=== PATIENT | male | born 1940 | race Caucasian/White ===

== ENCOUNTER 2019-05-17 20:02 | Inpatient (IN) | payer OTHER, MEDICAID ==
[~2019-05-17] VITALS: Ht 172.7 cm; Wt 88.9 kg
[2019-05-17 20:09] VITALS: BP_SYST 103
[2019-05-17 21:35] LABS: HEMOGLOBIN 14.2 g/dL (14.0-18.0); LYMPHOCYTES # (AUTO) 0.7 K/uL (1.0-5.5); MEAN CORPUSCULAR HEMOGLOBIN 31 pg (27-31); MEAN CORPUSCULAR HGB CONC 34 % (32-36); NEUTROPHILS # (AUTO) 7.9 K/uL (1.8-7.7); NEUTROPHILS % (AUTO) 85.8 % (40.0-70.0); WHITE BLOOD COUNT (AUTO) 9.2 K/uL (4.8-10.8)
[2019-05-17 21:51] LABS: BASOPHILS # (AUTO) 0.1 K/uL (0.0-0.2); BASOPHILS % (AUTO) 0.8 % (0.0-2.0); EOSINOPHILS % (AUTO) 0.1 % (0.0-4.0); LYMPHOCYTES % (AUTO) 7.4 % (20.5-51.5); MEAN CORPUSCULAR VOLUME 93 fL (79.0-98.0); MONOCYTES # (AUTO) 0.5 K/uL (0.0-1.0); MONOCYTES % (AUTO) 5.9 % (1.7-9.3); PLATELET COUNT (AUTO) 198 K/uL (130-430); RED BLOOD CELL COUNT(AUTO) 4.53 MIL/uL (4.2-6.2); RED CELL DISTRIBUTION WIDTH 13.7 % (9.0-15.0)
[2019-05-17 21:55] LABS: ANION GAP 15 (5-15); CALCIUM 8.6 mg/dL (8.4-11.0); CHLORIDE 98 mmol/L (98-107); CREATININE 1.62 mg/dL (0.55-1.30); GLUCOSE 352 mg/dL (70-99); POTASSIUM 3.9 mmol/L (3.5-5.1); SODIUM SERUM 136 mmol/L (136-145); UREA NITROGEN, BLOOD 46 mg/dL (8-21)
[2019-05-17 21:59] LABS: ALANINE AMINOTRANSFERASE 22 U/L (12-78); ALBUMIN 3.4 g/dL (3.4-4.8); ASPARTATE AMINOTRANSFERASE 14 U/L (10-37); TOTAL BILIRUBIN 0.8 mg/dL (0.0-1.0)
[2019-05-17] MEDS ORDERED: NACL 0.9% 1,000 ML IV ONE (22:39)
[2019-05-17] MEDS ORDERED: ONDANSETRON HCL 4 MG/2 ML VIAL IVP ONE (22:45)
[2019-05-17] MEDS ORDERED: PANTOPRAZOLE SODIUM 40 MG/VIAL (PROTONIX) IVP ONE (22:45)
[2019-05-18] VITALS (7 sets, daily range): BP systolic 107–146
[2019-05-18 00:13] LABS: BILIRUBIN,URINE 1+ (NEGATIVE); BLOOD, URINE NEGATIVE (NEGATIVE); CLARITY/URINE CLEAR (CLEAR); COLOR,URINE YELLOW (YELLOW); GLUCOSE,URINE 1+ (NEGATIVE); KETONES,URINE TRACE (NEGATIVE); LEUKOCYTE ESTERASE ,URINE NEGATIVE (NEGATIVE); NITRITE, URINE NEGATIVE (NEGATIVE); PROTEIN URINE NEGATIVE (NEGATIVE); UROBILINOGEN,URINE 0.2 (0.2-1.0)
[2019-05-18] MEDS ORDERED: INSULIN REGULAR, HUMAN 100 UNITS/ML, 10 ML VIAL SUBCUT ONE (01:30)
[2019-05-18] MEDS: NACL 0.9% 1,000 ML IV SCH ×2 (01:34→13:44)
[2019-05-18] MEDS ORDERED: INSULIN REGULAR, HUMAN 10 UNITS/0.1 ML INJ ONE (01:45)
[2019-05-18] MEDS ORDERED: ONDANSETRON HCL 4 MG/2 ML VIAL IVP PRN (07:30)
[2019-05-18] MEDS ORDERED: MORPHINE 4 MG/ML INJ. SYRINGE IVP PRN (07:30)
[2019-05-18] MEDS ORDERED: MORPHINE 2 MG/ML INJ. SYRINGE IVP PRN (07:30)
[2019-05-18 09:03] LABS: BASOPHILS % (AUTO) 0.5 % (0.0-2.0); EOSINOPHILS % (AUTO) 0.1 % (0.0-4.0); HEMOGLOBIN 12.6 g/dL (14.0-18.0); LYMPHOCYTES % (AUTO) 15.4 % (20.5-51.5); MEAN CORPUSCULAR HEMOGLOBIN 32 pg (27-31); MEAN CORPUSCULAR HGB CONC 34 % (32-36); MEAN CORPUSCULAR VOLUME 93 fL (79.0-98.0); MONOCYTES # (AUTO) 0.9 K/uL (0.0-1.0); NEUTROPHILS # (AUTO) 4.7 K/uL (1.8-7.7); PLATELET COUNT (AUTO) 173 K/uL (130-430); RED BLOOD CELL COUNT(AUTO) 3.99 MIL/uL (4.2-6.2); RED CELL DISTRIBUTION WIDTH 13.6 % (9.0-15.0); WHITE BLOOD COUNT (AUTO) 6.6 K/uL (4.8-10.8)
[2019-05-18 09:07] LABS: ALANINE AMINOTRANSFERASE 19 U/L (12-78); ALBUMIN 3.2 g/dL (3.4-4.8); ANION GAP 9 (5-15); ASPARTATE AMINOTRANSFERASE 16 U/L (10-37); CALCIUM 8.2 mg/dL (8.4-11.0); CHLORIDE 102 mmol/L (98-107); CREATININE 1.23 mg/dL (0.55-1.30); GLUCOSE 197 mg/dL (70-99); POTASSIUM 3.1 mmol/L (3.5-5.1); SODIUM SERUM 139 mmol/L (136-145); TOTAL BILIRUBIN 0.9 mg/dL (0.0-1.0); UREA NITROGEN, BLOOD 50 mg/dL (8-21)
[2019-05-18] MEDS ORDERED: METF1000 PO (13:05)
[2019-05-18] MEDS ORDERED: ASPI-1077 PO (13:05)
[2019-05-18] MEDS ORDERED: TAMS-11 PO (13:05)
[2019-05-18] MEDS ORDERED: VITD2000 PO (13:05)
[2019-05-18] MEDS ORDERED: PIOG15TA8 PO (13:05)
[2019-05-18] MEDS ORDERED: DOXA2TAB PO (13:05)
[2019-05-18] MEDS ORDERED: LIP20 PO (13:05)
[2019-05-18] MEDS ORDERED: DONE10TA44 PO (13:05)
[2019-05-18] MEDS ORDERED: MEMA28CA PO (13:05)
[2019-05-18] MEDS ORDERED: GLIM1TAB2 PO (13:05)
[2019-05-18] MEDS ORDERED: LISI1TAB29 PO (13:05)
[2019-05-18] MEDS ORDERED: KCL 40 mEq in 100 mL (PREMIX) 100 ML IV SCH (21:15)
[2019-05-19] MEDS: INSULIN REGULAR, HUMAN 100 UNITS/ML, 10 ML VIAL (humuLIN R) SUBCUT PRN (00:30)
[2019-05-19 04:04] VITALS: BP_SYST 121
[2019-05-19] MEDS: NACL 0.9% 1,000 ML IV SCH ×2 (04:05→17:15)
[2019-05-19 07:58] LABS: BASOPHILS % (AUTO) 0.3 % (0.0-2.0); EOSINOPHILS # (AUTO) 0.1 K/uL (0.0-0.4); HEMATOCRIT 33.2 % (36-54); HEMOGLOBIN 11.5 g/dL (14.0-18.0); LYMPHOCYTES # (AUTO) 1.5 K/uL (1.0-5.5); LYMPHOCYTES % (AUTO) 20.1 % (20.5-51.5); MEAN CORPUSCULAR HEMOGLOBIN 32 pg (27-31); MEAN CORPUSCULAR HGB CONC 35 % (32-36); MEAN CORPUSCULAR VOLUME 92 fL (79.0-98.0); MONOCYTES # (AUTO) 0.8 K/uL (0.0-1.0); MONOCYTES % (AUTO) 11.2 % (1.7-9.3); NEUTROPHILS % (AUTO) 67.4 % (40.0-70.0); PLATELET COUNT (AUTO) 155 K/uL (130-430); RED BLOOD CELL COUNT(AUTO) 3.61 MIL/uL (4.2-6.2); RED CELL DISTRIBUTION WIDTH 13.8 % (9.0-15.0); WHITE BLOOD COUNT (AUTO) 7.4 K/uL (4.8-10.8)
[2019-05-19 08:08] LABS: ALANINE AMINOTRANSFERASE 19 U/L (12-78); ALBUMIN 2.5 g/dL (3.4-4.8); ANION GAP 3 (5-15); ASPARTATE AMINOTRANSFERASE 15 U/L (10-37); CALCIUM 7.7 mg/dL (8.4-11.0); CHLORIDE 108 mmol/L (98-107); GLUCOSE 147 mg/dL (70-99); POTASSIUM 3.6 mmol/L (3.5-5.1); SODIUM SERUM 137 mmol/L (136-145); TOTAL BILIRUBIN 0.6 mg/dL (0.0-1.0); UREA NITROGEN, BLOOD 39 mg/dL (8-21)
[2019-05-19 08:56] VITALS: BP_SYST 122
[2019-05-19 12:53] VITALS: BP_SYST 121
[2019-05-19] MEDS: FAMOTIDINE PF 20 MG/2 ML VIAL IVP SCH (13:53)
[2019-05-19 17:24] VITALS: BP_SYST 146
[2019-05-19] MEDS ORDERED: MEMANTINE HCL 5 MG TABLET PO ONE (21:00)
[2019-05-19] MEDS: ALBUTEROL SULFATE 0.083% 2.5 MG/3 ML VIAL.NEB INH PRN (22:18)
[2019-05-20 00:13] VITALS: BP_SYST 109
[2019-05-20] MEDS: NACL 0.9% 1,000 ML IV SCH ×3 (05:32→23:39)
[2019-05-20 05:54] LABS: BASOPHILS % (AUTO) 0.4 % (0.0-2.0); EOSINOPHILS # (AUTO) 0.1 K/uL (0.0-0.4); EOSINOPHILS % (AUTO) 1.3 % (0.0-4.0); HEMATOCRIT 32.6 % (36-54); HEMOGLOBIN 11.2 g/dL (14.0-18.0); LYMPHOCYTES # (AUTO) 1.7 K/uL (1.0-5.5); LYMPHOCYTES % (AUTO) 24.4 % (20.5-51.5); MEAN CORPUSCULAR HEMOGLOBIN 32 pg (27-31); MEAN CORPUSCULAR HGB CONC 35 % (32-36); MEAN CORPUSCULAR VOLUME 92 fL (79.0-98.0); MONOCYTES # (AUTO) 0.6 K/uL (0.0-1.0); MONOCYTES % (AUTO) 8.7 % (1.7-9.3); NEUTROPHILS # (AUTO) 4.6 K/uL (1.8-7.7); NEUTROPHILS % (AUTO) 65.2 % (40.0-70.0); PLATELET COUNT (AUTO) 144 K/uL (130-430); RED BLOOD CELL COUNT(AUTO) 3.53 MIL/uL (4.2-6.2); RED CELL DISTRIBUTION WIDTH 13.6 % (9.0-15.0); WHITE BLOOD COUNT (AUTO) 7.1 K/uL (4.8-10.8)
[2019-05-20 06:55] LABS: ALANINE AMINOTRANSFERASE 16 U/L (12-78); ALBUMIN 2.6 g/dL (3.4-4.8); ANION GAP 9 (5-15); ASPARTATE AMINOTRANSFERASE 15 U/L (10-37); CALCIUM 7.7 mg/dL (8.4-11.0); CHLORIDE 107 mmol/L (98-107); CREATININE 0.81 mg/dL (0.55-1.30); GLUCOSE 117 mg/dL (70-99); SODIUM SERUM 141 mmol/L (136-145); TOTAL BILIRUBIN 0.7 mg/dL (0.0-1.0); UREA NITROGEN, BLOOD 32 mg/dL (8-21)
[2019-05-20 07:10] LABS: POTASSIUM 2.9 mmol/L (3.5-5.1)
[2019-05-20 08:00] VITALS: BP_SYST 128
[2019-05-20] MEDS ORDERED: POTASSIUM CHLORIDE 20 MEQ TAB.PRT.SR PO ONE ×2 (08:00→17:30)
[2019-05-20] MEDS: ATORVASTATIN 20 MG TABLET PO SCH (09:00)
[2019-05-20] MEDS: LISINOPRIL 20 MG TABLET PO SCH (09:00)
[2019-05-20] MEDS: DOXAZOSIN MESYLATE 2 MG TABLET PO SCH (09:00)
[2019-05-20] MEDS ORDERED: POTASSIUM CHLORIDE 40 MEQ in NS 250 ML IV ONE (09:00)
[2019-05-20] MEDS: MEMANTINE HCL 5 MG TABLET PO SCH ×2 (09:00→21:52)
[2019-05-20] MEDS: TAMSULOSIN HCL 0.4 MG CAP PO SCH (09:00)
[2019-05-20] MEDS ORDERED: GASTROGRAFIN 120 ML ONE (09:46)
[2019-05-20 12:00] VITALS: BP_SYST 124
[2019-05-20 16:18] VITALS: BP_SYST 147
[2019-05-20] MEDS: FAMOTIDINE PF 20 MG/2 ML VIAL IVP SCH (17:13)
[2019-05-20] MEDS: INSULIN REGULAR, HUMAN 100 UNITS/ML, 10 ML VIAL (humuLIN R) SUBCUT PRN ×2 (17:18→23:51)
[2019-05-20] MEDS ORDERED: DOXAZOSIN MESYLATE 2 MG TABLET PO ONE (17:30)
[2019-05-20] MEDS ORDERED: ATORVASTATIN 20 MG TABLET PO ONE (17:30)
[2019-05-20] MEDS ORDERED: LISINOPRIL 20 MG TABLET PO ONE (17:30)
[2019-05-20] MEDS ORDERED: TAMSULOSIN HCL 0.4 MG CAP PO ONE (17:30)
[2019-05-20] MEDS: ALBUTEROL SULFATE 0.083% 2.5 MG/3 ML VIAL.NEB INH PRN (17:45)
[2019-05-20 21:50] VITALS: BP_SYST 124
[2019-05-21 00:15] VITALS: BP_SYST 121
[2019-05-21] MEDS: INSULIN REGULAR, HUMAN 100 UNITS/ML, 10 ML VIAL (humuLIN R) SUBCUT PRN ×2 (05:12→12:51)
[2019-05-21 07:10] LABS: ALANINE AMINOTRANSFERASE 16 U/L (12-78); ALBUMIN 2.5 g/dL (3.4-4.8); ANION GAP 7 (5-15); ASPARTATE AMINOTRANSFERASE 13 U/L (10-37); CALCIUM 7.6 mg/dL (8.4-11.0); CHLORIDE 111 mmol/L (98-107); CREATININE 0.79 mg/dL (0.55-1.30); GLUCOSE 148 mg/dL (70-99); SODIUM SERUM 142 mmol/L (136-145); TOTAL BILIRUBIN 0.5 mg/dL (0.0-1.0); UREA NITROGEN, BLOOD 23 mg/dL (8-21)
[2019-05-21 07:24] LABS: POTASSIUM 2.9 mmol/L (3.5-5.1)
[2019-05-21 08:00] VITALS: BP_SYST 109
[2019-05-21] MEDS ORDERED: POTASSIUM CHLORIDE 20 MEQ/PKT PACKET PO ONE (08:15)
[2019-05-21] MEDS ORDERED: POTASSIUM CHLORIDE 40 MEQ in NS 250 ML IV ONE (09:00)
[2019-05-21] MEDS: MEMANTINE HCL 5 MG TABLET PO SCH ×2 (10:29→21:57)
[2019-05-21] MEDS: TAMSULOSIN HCL 0.4 MG CAP PO SCH (10:30)
[2019-05-21] MEDS: LISINOPRIL 20 MG TABLET PO SCH (10:45)
[2019-05-21] MEDS: DOXAZOSIN MESYLATE 2 MG TABLET PO SCH (10:46)
[2019-05-21] MEDS: ALBUTEROL SULFATE 0.083% 2.5 MG/3 ML VIAL.NEB INH PRN (11:43)
[2019-05-21] MEDS: ATORVASTATIN 20 MG TABLET PO SCH (12:54)
[2019-05-21] MEDS: FAMOTIDINE PF 20 MG/2 ML VIAL IVP SCH (12:54)
[2019-05-21] MEDS: NACL 0.9% 1,000 ML IV SCH (13:05)
[2019-05-21] MEDS ORDERED: LEVO500T89 PO (14:36)
[2019-05-21] MEDS ORDERED: METR500T PO (14:36)
[2019-05-21 17:17] LABS: POTASSIUM 3.8 mmol/L (3.5-5.1)
[2019-05-21 17:40] VITALS: BP_SYST 109
[2019-05-21 19:00] VITALS: BP_SYST 130
[2019-05-21 20:00] VITALS: BP_SYST 138
[2019-05-21] MEDS ORDERED: FUROSEMIDE 20 MG/2 ML VIAL IVP SCH (22:30)
[2019-05-21] MEDS: ALBUTEROL SULFATE 0.083% 2.5 MG/3 ML VIAL.NEB INH SCH (23:04)
[2019-05-22] VITALS: BP_SYST 135
[2019-05-22] MEDS: INSULIN REGULAR, HUMAN 100 UNITS/ML, 10 ML VIAL (humuLIN R) SUBCUT PRN ×2 (00:11→11:48)
[2019-05-22] MEDS: ALBUTEROL SULFATE 0.083% 2.5 MG/3 ML VIAL.NEB INH SCH ×6 (03:00→23:00)
[2019-05-22 08:08] VITALS: BP_SYST 101
[2019-05-22] MEDS: TAMSULOSIN HCL 0.4 MG CAP PO SCH (08:35)
[2019-05-22] MEDS: MEMANTINE HCL 5 MG TABLET PO SCH ×2 (08:35→20:56)
[2019-05-22] MEDS: DOXAZOSIN MESYLATE 2 MG TABLET PO SCH (08:36)
[2019-05-22] MEDS: LISINOPRIL 20 MG TABLET PO SCH (08:36)
[2019-05-22] MEDS: ATORVASTATIN 20 MG TABLET PO SCH (08:37)
[2019-05-22] MEDS: FAMOTIDINE PF 20 MG/2 ML VIAL IVP SCH (11:37)
[2019-05-22 12:10] VITALS: BP_SYST 126
[2019-05-22 16:00] VITALS: BP_SYST 122
[2019-05-22 20:00] VITALS: BP_SYST 136
[2019-05-23 00:35] VITALS: BP_SYST 128
[2019-05-23] MEDS: ALBUTEROL SULFATE 0.083% 2.5 MG/3 ML VIAL.NEB INH SCH ×6 (03:00→23:45)
[2019-05-23] MEDS: ALBUTEROL SULFATE 0.083% 2.5 MG/3 ML VIAL.NEB INH PRN (04:02)
[2019-05-23 08:00] VITALS: BP_SYST 125
[2019-05-23] MEDS: TAMSULOSIN HCL 0.4 MG CAP PO SCH (08:44)
[2019-05-23] MEDS: DOXAZOSIN MESYLATE 2 MG TABLET PO SCH (08:44)
[2019-05-23] MEDS: LISINOPRIL 20 MG TABLET PO SCH (08:45)
[2019-05-23] MEDS: ATORVASTATIN 20 MG TABLET PO SCH (08:45)
[2019-05-23] MEDS: MEMANTINE HCL 5 MG TABLET PO SCH ×2 (08:45→21:02)
[2019-05-23 11:07] VITALS: BP_SYST 128
[2019-05-23] MEDS: FAMOTIDINE PF 20 MG/2 ML VIAL IVP SCH (11:56)
[2019-05-23 15:57] VITALS: BP_SYST 139
[2019-05-23 20:00] VITALS: BP_SYST 148
[2019-05-24 00:37] VITALS: BP_SYST 156
[2019-05-24] MEDS: ALBUTEROL SULFATE 0.083% 2.5 MG/3 ML VIAL.NEB INH SCH ×5 (03:00→23:27)
[2019-05-24 08:00] VITALS: BP_SYST 150
[2019-05-24] MEDS: ATORVASTATIN 20 MG TABLET PO SCH (10:34)
[2019-05-24] MEDS: TAMSULOSIN HCL 0.4 MG CAP PO SCH (10:35)
[2019-05-24] MEDS: DOXAZOSIN MESYLATE 2 MG TABLET PO SCH (10:35)
[2019-05-24] MEDS: MEMANTINE HCL 5 MG TABLET PO SCH ×2 (10:35→21:19)
[2019-05-24] MEDS: LISINOPRIL 20 MG TABLET PO SCH (10:36)
[2019-05-24] MEDS: FAMOTIDINE PF 20 MG/2 ML VIAL IVP SCH (12:33)
[2019-05-24 12:43] VITALS: BP_SYST 134
[2019-05-24 16:26] VITALS: BP_SYST 130
[2019-05-24] MEDS: INSULIN REGULAR, HUMAN 100 UNITS/ML, 10 ML VIAL (humuLIN R) SUBCUT PRN (17:23)
[2019-05-24 20:00] VITALS: BP_SYST 129
[2019-05-25] MEDS: ALBUTEROL SULFATE 0.083% 2.5 MG/3 ML VIAL.NEB INH SCH ×3 (03:23→11:17)
[2019-05-25 08:00] VITALS: BP_SYST 154
[2019-05-25] MEDS: FAMOTIDINE PF 20 MG/2 ML VIAL IVP SCH (10:53)
[2019-05-25] MEDS: TAMSULOSIN HCL 0.4 MG CAP PO SCH (10:53)
[2019-05-25] MEDS: DOXAZOSIN MESYLATE 2 MG TABLET PO SCH (10:54)
[2019-05-25] MEDS: ATORVASTATIN 20 MG TABLET PO SCH (10:54)
[2019-05-25] MEDS: MEMANTINE HCL 5 MG TABLET PO SCH (10:54)
[2019-05-25] MEDS: LISINOPRIL 20 MG TABLET PO SCH (10:55)
[2019-05-25 11:23] VITALS: BP_SYST 154
[2019-05-25 12:33] VITALS: BP_SYST 154
== END 2019-05-25 14:05 | DRG 392 ==
LOC: SED 20:02 → SMU 05-18 00:58
PROVIDERS: ADMIT Internal Medicine Hospice and Palliative Medicine; ATTEND Internal Medicine Hospice and Palliative Medicine
DX: K52.9 Noninfective gastroenteritis and colitis, unspecified (principal); K56.609 Unspecified intestinal obstruction, unspecified as to partial versus complete obstruction; N40.0 Benign prostatic hyperplasia without lower urinary tract symptoms; E11.65 Type 2 diabetes mellitus with hyperglycemia; E11.9 Type 2 diabetes mellitus without complications; I10 Essential (primary) hypertension; F03.90 Unspecified dementia, unspecified severity, without behavioral disturbance, psychotic disturbance, mood disturbance, and anxiety
CPT/HCPCS: 36415; 36600; 71045; 74018; 74250-TC; 80053; 81003; 82803-TC; 82962; 83690-TC; 83735-TC; 84132-TC; 85025; 94640; 94760; 96361; 96374; 96375; 97116-GP; 97530-GP; 99285; C9113; J1815; J1940; J2405; J3480; J3490; J7030; J7050; J7613; Q9963

== ENCOUNTER 2019-09-12 16:50 | Emergency (ER) | payer OTHER, MEDICAID ==
[~2019-09-12] VITALS: Ht 170.2 cm; Wt 83.9 kg
[~2019-09-12 16:50] MED LIST: ASPI-1077 PO; DONE10TA44 PO; DOXA2TAB PO; GLIM1TAB2 PO; LEVO500T89 PO; LIP20 PO; LISI1TAB29 PO; MEMA28CA PO; METF1000 PO; METR500T PO; PIOG15TA8 PO; TAMS-11 PO; VITD2000 PO
--- NOTE | 2019-09-12 17:10 | NUR ---
PATIENT TO ER #1
[2019-09-12 17:14] VITALS: BP_SYST 135
--- NOTE | 2019-09-12 17:18 | NUR ---
PT ARRIVES FROM [facility] TO [facility]. PT IS VERBALLY AND PHYSICALLY AGRESSIVE TOWARDS THE STAFF. AAOx1.
--- NOTE | 2019-09-12 17:20 | NUR ---
ER at bedside examining patient.
--- NOTE | 2019-09-12 17:22 | NUR ---
FLU AND MRSA SWABS COLLECTED AND SENT TO LAB
--- NOTE | 2019-09-12 17:25 | NUR ---
EKG DONE AND GIVEN TO
[2019-09-12 17:33] LABS: BASOPHILS % (AUTO) 0.6 % (0.0-2.0); EOSINOPHILS # (AUTO) 0.1 K/uL (0.0-0.4); EOSINOPHILS % (AUTO) 2.5 % (0.0-4.0); HEMATOCRIT 37.9 % (36-54); HEMOGLOBIN 12.6 g/dL (14.0-18.0); LYMPHOCYTES # (AUTO) 1.4 K/uL (1.0-5.5); LYMPHOCYTES % (AUTO) 28.4 % (20.5-51.5); MEAN CORPUSCULAR HEMOGLOBIN 30 pg (27-31); MEAN CORPUSCULAR HGB CONC 33 % (32-36); MEAN CORPUSCULAR VOLUME 90 fL (79.0-98.0); MONOCYTES # (AUTO) 0.4 K/uL (0.0-1.0); MONOCYTES % (AUTO) 8.2 % (1.7-9.3); NEUTROPHILS # (AUTO) 2.9 K/uL (1.8-7.7); NEUTROPHILS % (AUTO) 60.3 % (40.0-70.0); PLATELET COUNT (AUTO) 151 K/uL (130-430); RED BLOOD CELL COUNT(AUTO) 4.19 MIL/uL (4.2-6.2); RED CELL DISTRIBUTION WIDTH 14.4 % (9.0-15.0); WHITE BLOOD COUNT (AUTO) 4.9 K/uL (4.8-10.8)
[2019-09-12 17:46] LABS: ANION GAP 5 (5-15); CALCIUM 8.8 mg/dL (8.4-11.0); CHLORIDE 105 mmol/L (98-107); CREATININE 0.81 mg/dL (0.55-1.30); GLUCOSE 102 mg/dL (70-99); POTASSIUM 4.1 mmol/L (3.5-5.1); SODIUM SERUM 140 mmol/L (136-145); UREA NITROGEN, BLOOD 23 mg/dL (8-21)
[2019-09-12 17:52] LABS: ACETAMINOPHEN < 1 ug/mL (1-30); ALANINE AMINOTRANSFERASE 23 U/L (12-78); ALBUMIN 3.1 g/dL (3.4-4.8); ASPARTATE AMINOTRANSFERASE 13 U/L (10-37); TOTAL BILIRUBIN 0.6 mg/dL (0.0-1.0)
--- NOTE | 2019-09-12 18:00 | NUR ---
pt is resting in bed. No signs of distress at the noted
[2019-09-12 18:03] LABS: ALCOHOL, BLOOD < 3 mg/dL (<10)
[2019-09-12 18:48] LABS: BARBITURATE, URINE NEGATIVE (NEG <=200); BENZODIAZEPINE, URINE NEGATIVE (NEG <=150); CANNABINOID, URINE NEGATIVE (NEG <=50); COCAINE, URINE NEGATIVE (NEG <=150); METHAMPHETAMINES SCREEN,URINE NEGATIVE (NEG <=500); OPIATE, URINE NEGATIVE (NEG <=100); PHENCYCLIDINE SCREEN,URINE NEGATIVE (NEG <=25); UR TRICYCLIC ANTIDEPRESSANTS NEGATIVE (NEG <=300); URINE AMPHETAMINE NEGATIVE (NEG <=500); URINE METHADONE NEGATIVE (NEG <=200); URINE OXYCODONE SCREEN NEGATIVE (NEG <=100); URINE PROPOXYPHENE SCREEN NEGATIVE (NEG <=300)
[2019-09-12 19:09] LABS: BILIRUBIN,URINE NEGATIVE (NEGATIVE); BLOOD, URINE NEGATIVE (NEGATIVE); CLARITY/URINE CLEAR (CLEAR); COLOR,URINE YELLOW (YELLOW); GLUCOSE,URINE NEGATIVE (NEGATIVE); KETONES,URINE NEGATIVE (NEGATIVE); LEUKOCYTE ESTERASE ,URINE NEGATIVE (NEGATIVE); NITRITE, URINE NEGATIVE (NEGATIVE); PROTEIN URINE NEGATIVE (NEGATIVE)
--- NOTE | 2019-09-12 19:19 | NUR ---
report given to Orestes COOPER. Pt is in stable condition
[2019-09-12 19:29] VITALS: BP_SYST 117
--- NOTE | 2019-09-12 19:30 | NUR ---
Patient to be transferred to [facility]. Is being transferred due to higher level of care. Receiving facility has accepting physician and available space. ER physician has signed transfer form. Patient or responsible green party has agreed to transfer and signed form. Patient belongings inventoried and will be sent with patient. Copy of nursing notes, lab reports, EKG, Physicians Orders and X-rays to be sent with patient. Report called to Ronit at receiving facility. Receiving physician is Dr. Muhammad. [facility] for [facility]. Pt is in stable condition
[2019-09-12 19:43] LABS: CHOLESTEROL 84 mg/dL (<200); HDL CHOLESTEROL 30 mg/dL (>45); LDL CHOLESTEROL 40 mg/dL (<100)
[2019-09-13] LABS: TRIGLYCERIDES 83 mg/dL (30-150)
== END 2019-09-12 19:30 ==
LOC: SED 16:50
DX: R45.6 Violent behavior (principal); F03.90 Unspecified dementia, unspecified severity, without behavioral disturbance, psychotic disturbance, mood disturbance, and anxiety; I10 Essential (primary) hypertension; E11.9 Type 2 diabetes mellitus without complications; K21.9 Gastro-esophageal reflux disease without esophagitis; Z79.84 Long term (current) use of oral hypoglycemic drugs; Z79.899 Other long term (current) drug therapy
CPT/HCPCS: 36415; 80053; 80061; 80307; 81003; 83036; 85025; 87081; 93005; 99285; G0480; G0481; G0482